=== PATIENT | female | born 1985 | race American Indian/Alaskan Native ===

== ENCOUNTER 2019-07-05 00:31 | Emergency (ER) | payer BC, OTHER ==
[2019-07-05 02:06] LABS: Basophils % (Auto) 0.5 % (0.0-1.8); Eosinophils # (Auto) 0.2 K/mm3 (0.0-0.4); Eosinophils % (Auto) 2.3 % (0.0-4.3); Hematocrit 37.8 % (30.3-42.9); Hemoglobin 12.4 gm/dl (10.1-14.3); Lymphocytes # (Auto) 2.4 K/mm3 (1.2-5.4); Lymphocytes % (Auto) 25.4 % (13.4-35.0); Mean Corpuscular HGB Conc 33 % (30-34); Mean Corpuscular Volume 77 fl (79-97); Monocytes # (Auto) 0.8 K/mm3 (0.0-0.8); Platelet Count 397 K/mm3 (140-440); Red Blood Count 4.89 M/mm3 (3.65-5.03); Red Cell Distribution Width 16.3 % (13.2-15.2)
[2019-07-05 02:39] LABS: Bilirubin,Urine NEG (Negative); Blood,Urine NEG (Negative); Color,Urine Yellow (Yellow); Mucus,Urine FEW /HPF; Protein,Urine <15 mg/dL mg/dL (Negative); Urobilinogen,Urine < 2.0 mg/dL (<2.0)
--- NOTE | 2019-07-05 03:07 | Emergency Department Report ---
ED Abdominal Pain HPI - General Chief Complaint: Abdominal Pain Stated Complaint: ABD PAIN,SORE THORAT Time Seen by Provider: 07/05/19 03:06 Source: patient Mode of arrival: Ambulatory Limitations: No Limitations - Related Data Previous Rx's Medication Instructions Recorded Last Taken Type Acetaminophen/Codeine [Tylenol #3] 1 tab PO QHS PRN #10 tab 01/20/15 Unknown Rx Cyclobenzaprine [Flexeril 10mg] 10 mg PO TID PRN #15 tablet 01/20/15 Unknown Rx Ibuprofen [Motrin] 800 mg PO Q8H PRN #30 tablet 01/20/[address] [Hernan Mckeon] 75 mg PO Q12H #20 tablet 03/14/15 Unknown Rx methOCARBAMOL [Robaxin TAB] 750 mg PO Q8H PRN #21 tablet 03/14/15 Unknown Rx Acetaminophen [Non-Aspirin Extra 500 mg PO Q8H PRN #12 tablet 07/05/19 Unknown Rx Strength] Amoxicillin [Amoxicillin TAB] 875 mg PO BID 10 Days #20 tablet 07/05/19 Unknown Rx Allergies Allergy/AdvReac Type Severity Reaction Status Date / Time No Known Allergies Allergy Unverified 01/20/15 12:09 ED Review of Systems ROS: Stated complaint: ABD PAIN,SORE THORAT Other details as noted in HPI ED Past Medical Hx - Past Medical History Previous Medical History?: Yes Hx Asthma: Yes Additional medical history: Ovarian cyst, Uterine polyps - Surgical History Past Surgical History?: Yes Additional Surgical History: left hand ganglion cyst removal, Tubal Ligation - Social History Smoking Status: Never Smoker Substance Use Type: None - Medications Home Medications: Home Medications Medication Instructions Recorded Confirmed Last Taken Type Acetaminophen/Codeine [Tylenol #3] 1 tab PO QHS PRN #10 tab 01/20/15 Unknown Rx Cyclobenzaprine [Flexeril 10mg] 10 mg PO TID PRN #15 tablet 01/20/15 Unknown Rx Ibuprofen [Motrin] 800 mg PO Q8H PRN #30 tablet 01/20/[address] [Hernan Mckeon] 75 mg PO Q12H #20 tablet 03/14/15 Unknown Rx methOCARBAMOL [Robaxin TAB] 750 mg PO Q8H PRN #21 tablet 03/14/15 Unknown Rx Acetaminophen [Non-Aspirin Extra 500 mg PO Q8H PRN #12 tablet 07/05/19 Unknown Rx Strength] Amoxicillin [Amoxicillin TAB] 875 mg PO BID 10 Days #20 tablet 07/05/19 Unknown Rx ED Physical Exam - General Limitations: No Limitations ED Course Vital Signs 07/05/19 07/05/19 00:35 04:40 Temperature 98.3 F Pulse Rate 99 H Respiratory 18 20 Rate Blood Pressure 152/94 O2 Sat by Pulse 98 Oximetry - Reevaluation(s) Reevaluation #1: 07/05/19 05:57 Patient stable at present. No abdominal pain. Ultrasound with IUP at 12 weeks and heart tone at 155 bpm. Patient received Tylenol 650 mg in emergency room for headache and facial pressure and amoxicillin started for sinusitis. Abdominal exam remains stable. Reevaluation #2: 07/05/19 06:26 Patient pain is better and she says she is feeling better. Reevaluation #3: 07/05/19 06:33 Blood pressure is now 125/85. ED Medical Decision Making - Lab Data Result diagrams: 07/05/19 01:50 07/05/19 03:30 Lab Results 07/05/19 07/05/19 07/05/19 Range/Units 01:50 01:50 02:20 WBC 9.4 (4.5-11.0) K/mm3 RBC 4.89 (3.65-5.03) M/mm3 Hgb 12.4 (10.1-14.3) gm/dl Hct 37.8 (30.3-42.9) % MCV 77 L (79-97) fl MCH 25 L (28-32) pg MCHC 33 (30-34) % RDW 16.3 H (13.2-15.2) % Plt Count 397 (140-440) K/mm3 Lymph % (Auto) 25.4 (13.4-35.0) % [place] % (Auto) 8.0 H (0.0-7.3) % Eos % (Auto) 2.3 (0.0-4.3) % Baso % (Auto) 0.5 (0.0-1.8) % Lymph # 2.4 (1.2-5.4) K/mm3 [place] # 0.8 (0.0-0.8) K/mm3 Eos # 0.2 (0.0-0.4) K/mm3 Baso # 0.0 (0.0-0.1) K/mm3 Seg Neutrophils % 63.8 (40.0-70.0) % Seg Neutrophils # 6.0 (1.8-7.7) K/mm3 Sodium (137-145) mmol/L Potassium (3.6-5.0) mmol/L Chloride (98-107) mmol/L Carbon Dioxide (22-30) mmol/L Anion Gap mmol/L BUN (7-17) mg/dL Creatinine (0.7-1.2) mg/dL Estimated GFR ml/min BUN/Creatinine Ratio % Glucose (65-100) mg/dL Calcium (8.4-10.2) mg/dL HCG, Quant 24898 H (0-4) mIU/mL Urine Color Yellow (Yellow) Urine Turbidity Slightly-cloudy (Clear) Urine pH 5.0 (5.0-7.0) Ur Specific [place] 1.020 (1.003-1.030) Urine Protein <15 mg/dl (Negative) mg/dL Urine Glucose (UA) Neg (Negative) mg/dL Urine Ketones Neg (Negative) mg/dL Urine Blood Neg (Negative) Urine Nitrite Neg (Negative) Urine Bilirubin Neg (Negative) Urine Urobilinogen < 2.0 (<2.0) mg/dL Ur Leukocyte Esterase Neg (Negative) Urine WBC (Auto) 1.0 (0.0-6.0) /HPF Urine RBC (Auto) 2.0 (0.0-6.0) /HPF U Epithel Cells (Auto) 9.0 (0-13.0) /HPF Urine Mucus Few /HPF 07/05/19 Range/Units 03:30 WBC (4.5-11.0) K/mm3 RBC (3.65-5.03) M/mm3 Hgb (10.1-14.3) gm/dl Hct (30.3-42.9) % MCV (79-97) fl MCH (28-32) pg MCHC (30-34) % RDW (13.2-15.2) % Plt Count (140-440) K/mm3 Lymph % (Auto) (13.4-35.0) % [place] % (Auto) (0.0-7.3) % Eos % (Auto) (0.0-4.3) % Baso % (Auto) (0.0-1.8) % Lymph # (1.2-5.4) K/mm3 [place] # (0.0-0.8) K/mm3 Eos # (0.0-0.4) K/mm3 Baso # (0.0-0.1) K/mm3 Seg Neutrophils % (40.0-70.0) % Seg Neutrophils # (1.8-7.7) K/mm3 Sodium 136 L (137-145) mmol/L Potassium 4.2 (3.6-5.0) mmol/L Chloride 101.3 (98-107) mmol/L Carbon Dioxide 22 (22-30) mmol/L Anion Gap 17 mmol/L BUN 14 (7-17) mg/dL Creatinine 0.7 (0.7-1.2) mg/dL Estimated GFR > 60 ml/min BUN/Creatinine Ratio 20 % Glucose 84 (65-100) mg/dL Calcium 9.5 (8.4-10.2) mg/dL HCG, Quant (0-4) mIU/mL Urine Color (Yellow) Urine Turbidity (Clear) Urine pH (5.0-7.0) Ur Specific [place] (1.003-1.030) Urine Protein (Negative) mg/dL Urine Glucose (UA) (Negative) mg/dL Urine Ketones (Negative) mg/dL Urine Blood (Negative) Urine Nitrite (Negative) Urine Bilirubin (Negative) Urine Urobilinogen (<2.0) mg/dL Ur Leukocyte Esterase (Negative) Urine WBC (Auto) (0.0-6.0) /HPF Urine RBC (Auto) (0.0-6.0) /HPF U Epithel Cells (Auto) (0-13.0) /HPF Urine Mucus /HPF - Radiology Data Radiology results: report reviewed Ultrasound OB transvaginal and transabdominal dictated by radiologist and report reviewed by myself. Please see details below. Findings [facility] [address] [place] [address] Ultrasound Report Signed Patient: ALANNA STANTON MR#: [id number] [birth year] Acct:[id number] Age/Sex: 33 / F ADM Date: 07/05/19 Loc: ED Attending Dr: Ordering Physician: LAURA CHAVES Date of Service: 07/05/19 Procedure(s): US OB transvaginal Accession Number(s): [id number] cc: LAURA CHAVES ULTRASOUND OBSTETRIC Indication: pelvic in Findings: There is a single, living intrauterine . [place]-rump length = 5.7 cm = 12 weeks, 0 day(s). heart rate is 159 beats per minute. The ovaries are normal. There is no free fluid. Impression: Single, living intrauterine with estimated sonographic age of 12 weeks, 0 day(s). Signer Name: Bob Russell MD Signed: 07/05/2019 4:36 AM Workstation Name: [id number] Transcribed By: BC Dictated By: Bob Russell MD Electronically Authenticated By: Bob Russell MD Signed Date/Time: 07/05/19435 DD/ 4 - Differential Diagnosis abdominal pain and , UTI, Critical care attestation.: If time is entered above; I have spent that time in minutes in the direct care of this critically ill patient, excluding procedure time. ED Disposition Clinical Impression: Abdominal pain in Qualifiers: Trimester: first trimester Qualified Code(s): O26.891 - Other specified related conditions, first trimester; R10.9 - Unspecified abdominal pain Sinusitis Qualifiers: Sinusitis location: maxillary Chronicity: acute Recurrence: non-recurrent Qualified Code(s): J01.00 - Acute maxillary sinusitis, unspecified Disposition: DC-01 TO HOME OR SELFCARE Is pt being admited?: No Does the pt Need Aspirin: No Condition: Stable Instructions: Abdominal Pain in (ED), Sinusitis (ED) Additional Instructions: Please take antibiotic as prescribed for sinus infection. Increase your fluid intake Please monitor your blood pressure and take to your SOFTWARE [employer]INE[employer] PROJECT [employer]NA[employer] visit with you. Take Tylenol as prescribed for pain. flush and nostrils out with saline nasal spray Follow-up with the primary care doctor in 2-3 days for sinus infection. 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 See referral If you condition worsens, return to the emergency room Rest for a couple days and call physicians tomorrow to schedule an appointment. Referrals: PRIMARY CARE, [Primary Care Provider] - 2-3 Days CARLOS TURCIOS MD [Staff Physician] - 07/07/19 Forms: Work/School Release Form(ED)
[2019-07-05 04:09] LABS: BUN/Creatinine Ratio 20; Blood Urea Nitrogen 14 mg/dL (7-17); Calcium 9.5 mg/dL (8.4-10.2); Hemolysis Index 1
[2019-07-05] MEDS ORDERED: ACETAMINOPHEN 325 MG TAB PO ONE (04:18)
--- NOTE | 2019-07-05 04:41 | Ultrasound Report ---
ULTRASOUND OBSTETRIC Indication: pelvic in Findings: There is a single, living intrauterine . [place]-rump length = 5.7 cm = 12 weeks, 0 day(s). heart rate is 159 beats per minute. The ovaries are normal. There is no free fluid. Impression: Single, living intrauterine with estimated sonographic age of 12 weeks, 0 day(s). Signer Name: Bob Russell MD Signed: 07/05/2019 4:36 AM Workstation Name: [email or web address]
--- NOTE | 2019-07-05 04:41 | Ultrasound Report ---
ULTRASOUND OBSTETRIC Indication: pelvic in Findings: There is a single, living intrauterine . [place]-rump length = 5.7 cm = 12 weeks, 0 day(s). heart rate is 159 beats per minute. The ovaries are normal. There is no free fluid. Impression: Single, living intrauterine with estimated sonographic age of 12 weeks, 0 day(s). Signer Name: Bob Russell MD Signed: 07/05/2019 4:36 AM Workstation Name: [email or web address]
[2019-07-05] MEDS ORDERED: AMOXICILLIN 250 MG/10 ML ORAL SYRINGE PO ONE (04:48)
[2019-07-05 06:46] VITALS: BP 125/85
== END 2019-07-05 06:53 | disposition home or self-care (01) ==
LOC: ED 00:31
DX: O99.511 Diseases of the respiratory system complicating pregnancy, first trimester (principal); J32.9 Chronic sinusitis, unspecified; J45.909 Unspecified asthma, uncomplicated; O26.891 Other specified pregnancy related conditions, first trimester; R10.9 Unspecified abdominal pain; Z98.51 Tubal ligation status; Z79.899 Other long term (current) drug therapy; Z3A.12 12 weeks gestation of pregnancy
CPT/HCPCS: 36415; 76801; 76817; 80048; 81001; 84702; 85025